=== PATIENT | male | born 1995 | race Caucasian/White ===

== ENCOUNTER 2019-01-29 16:24 | Emergency (ER) | payer MEDICAID ==
[~2019-01-29] VITALS: Ht 180.3 cm; Wt 79.0 kg
[2019-01-29] MEDS ORDERED: ONDANSETRON HCL 4MG/2ML INJ IV STA (19:14)
[2019-01-29] MEDS ORDERED: MORPHINE SULFATE 4 MG/ML CPJ (NOT FOR IM USE) IV STA (19:14)
[2019-01-29] MEDS ORDERED: SODIUM CHLORIDE 0.9% 1,000 ML IV ONE (19:14)
[2019-01-29 21:00] VITALS: BP 121/75
[2019-01-29] MEDS ORDERED: MORPHINE SULFATE 4 MG/ML CPJ (NOT FOR IM USE) IV ONE (21:45)
[2019-01-29] MEDS ORDERED: ETOMIDATE 2MG/ML 10ML VIAL IV ONE (21:45)
== END 2019-01-29 21:50 | disposition home or self-care (01) ==
LOC: ER 16:24
DX: S43.015D Anterior dislocation of left humerus, subsequent encounter (principal); F12.10 Cannabis abuse, uncomplicated; X58.XXXD Exposure to other specified factors, subsequent encounter
CPT/HCPCS: 29105; 73030; 96374; 96375; 99283; J2270; J2405; J7030

== ENCOUNTER 2019-01-30 06:45 | Emergency (ER) | payer MEDICAID ==
[~2019-01-30] VITALS: Ht 180.3 cm; Wt 79.0 kg
[2019-01-30] MEDS ORDERED: MORPHINE SULFATE 4 MG/ML CPJ (NOT FOR IM USE) IV STA (08:32)
[2019-01-30] MEDS ORDERED: ONDANSETRON HCL 4MG/2ML INJ IV STA (08:32)
[2019-01-30] MEDS ORDERED: ONDANSETRON HCL 4MG/2ML INJ IV ONE (10:15)
[2019-01-30] MEDS ORDERED: ETOMIDATE 2MG/ML 10ML VIAL IV ONE (10:15)
[2019-01-30 13:00] VITALS: BP 130/89
== END 2019-01-30 13:27 | disposition home or self-care (01) ==
LOC: ER 07:19
DX: S43.005A Unspecified dislocation of left shoulder joint, initial encounter (principal); X58.XXXA Exposure to other specified factors, initial encounter; Y93.9 Activity, unspecified; Y92.9 Unspecified place or not applicable
CPT/HCPCS: 96374; 96375; 96376; 99283; J2270; J2405; J3490; Z7610

== ENCOUNTER 2019-02-02 05:29 | Emergency (ER) | payer MEDICAID, OTHER ==
[~2019-02-02] VITALS: Ht 180.3 cm; Wt 80.0 kg
[2019-02-02] MEDS ORDERED: MORPHINE SULFATE 4 MG/ML CPJ (NOT FOR IM USE) IV STA (06:48)
[2019-02-02] MEDS ORDERED: LIDOCAINE HCL 1% 20ML VIAL (Pyxis) INJ INFIL ONE (07:00)
[2019-02-02] MEDS ORDERED: ONDANSETRON HCL 4MG/2ML INJ IV ONE (08:45)
[2019-02-02] MEDS ORDERED: PROPOFOL 200MG/20ML VIAL IV ONE (08:45)
[2019-02-02] MEDS ORDERED: KETAMINE HCL 50 MG/ML 10ML IV ONE (08:45)
[2019-02-02 09:38] VITALS: BP 133/75
== END 2019-02-02 10:24 | disposition home or self-care (01) ==
LOC: ER 05:29
DX: S43.085A Other dislocation of left shoulder joint, initial encounter (principal); F12.10 Cannabis abuse, uncomplicated; X58.XXXA Exposure to other specified factors, initial encounter; Y93.89 Activity, other specified; Y92.89 Other specified places as the place of occurrence of the external cause; Y99.8 Other external cause status; Z98.890 Other specified postprocedural states
CPT/HCPCS: 23650; 73030; 96374; 96375; 99285; J2270; J2405; J2704; J3490; Z7610

== ENCOUNTER 2019-06-27 19:12 | Emergency (ER) | payer MEDICAID, OTHER ==
[~2019-06-27] VITALS: Ht 180.3 cm; Wt 76.0 kg
[2019-06-27] MEDS ORDERED: KETOROLAC 15MG/ML VIAL IV ONE (21:45)
[2019-06-27] MEDS ORDERED: LORAZEPAM 2MG/ML CPJ IV ONE (22:15)
[2019-06-27] MEDS ORDERED: MORPHINE SULFATE 4 MG/ML CPJ (NOT FOR IM USE) IV STA (22:15)
[2019-06-27] MEDS ORDERED: ONDANSETRON HCL 4MG/2ML INJ IV STA (22:15)
[2019-06-27 22:56] VITALS: BP 136/93
== END 2019-06-28 00:59 | disposition home or self-care (01) ==
LOC: ER 19:12
DX: S43.085A Other dislocation of left shoulder joint, initial encounter (principal); F12.10 Cannabis abuse, uncomplicated; F17.210 Nicotine dependence, cigarettes, uncomplicated; X58.XXXA Exposure to other specified factors, initial encounter; Y93.39 Activity, other involving climbing, rappelling and jumping off; Y92.89 Other specified places as the place of occurrence of the external cause
CPT/HCPCS: 73020; 73030; 96374; 96375; 99283; J1885; J2060; J2270; J2405

== ENCOUNTER 2019-06-29 09:24 | Emergency (ER) | payer MEDICAID ==
[~2019-06-29] VITALS: Ht 180.3 cm; Wt 75.0 kg
[2019-06-29] MEDS ORDERED: PROPOFOL 200MG/20ML VIAL IV ONE (10:15)
[2019-06-29] MEDS ORDERED: MORPHINE SULFATE 4 MG/ML CPJ (NOT FOR IM USE) IV ONE (10:15)
[2019-06-29 15:32] VITALS: BP 110/72
== END 2019-06-29 15:45 | disposition home or self-care (01) ==
LOC: ER 09:24
DX: S42.292A Other displaced fracture of upper end of left humerus, initial encounter for closed fracture (principal); S43.005A Unspecified dislocation of left shoulder joint, initial encounter; F12.10 Cannabis abuse, uncomplicated; F17.290 Nicotine dependence, other tobacco product, uncomplicated; W18.39XA Other fall on same level, initial encounter; Y93.89 Activity, other specified; Y92.89 Other specified places as the place of occurrence of the external cause; Y99.8 Other external cause status
CPT/HCPCS: 23650; 73030; 96374; 99284; 99406; J2270; J2704; L3670

== ENCOUNTER 2019-07-27 08:46 | Emergency (ER) | payer MEDICAID ==
[~2019-07-27] VITALS: Ht 180.3 cm; Wt 73.0 kg
[2019-07-27] MEDS ORDERED: SODIUM CHLORIDE 0.9% 1,000 ML IV ONE (09:01)
[2019-07-27] MEDS ORDERED: ONDANSETRON HCL 4MG/2ML INJ IV STA (09:01)
[2019-07-27] MEDS ORDERED: MORPHINE SULFATE 4 MG/ML CPJ (NOT FOR IM USE) IV STA (09:01)
[2019-07-27] MEDS ORDERED: ONDANSETRON HCL 4MG/2ML INJ IV ONE (10:00)
[2019-07-27] MEDS ORDERED: ETOMIDATE 2MG/ML 10ML VIAL IV ONE (10:00)
[2019-07-27 12:01] VITALS: BP 108/72
== END 2019-07-27 12:12 | disposition home or self-care (01) ==
LOC: ER 08:46
DX: S43.015A Anterior dislocation of left humerus, initial encounter (principal); F17.200 Nicotine dependence, unspecified, uncomplicated; X58.XXXA Exposure to other specified factors, initial encounter; Y93.89 Activity, other specified; Y92.89 Other specified places as the place of occurrence of the external cause; Y99.8 Other external cause status
CPT/HCPCS: 23650; 73030; 96374; 96375; 96376; 99152; 99285; C1893; J2270; J2405; J3490; J7030

== ENCOUNTER 2019-09-24 22:16 | Emergency (ER) | payer MEDICAID ==
[~2019-09-24] VITALS: Ht 180.3 cm; Wt 79.0 kg
[2019-09-24] MEDS ORDERED: PROPOFOL 200MG/20ML VIAL IV ONE (23:00)
[2019-09-24] MEDS ORDERED: KETAMINE HCL 50 MG/ML 10ML IV ONE (23:00)
[2019-09-25 03:20] VITALS: BP 109/68
== END 2019-09-25 03:21 | disposition home or self-care (01) ==
LOC: ER 22:16
DX: M24.412 Recurrent dislocation, left shoulder (principal); Z98.890 Other specified postprocedural states
CPT/HCPCS: 23650; 73030; 96374; 96375; 99284; J2704; J3490

== ENCOUNTER 2019-10-12 05:23 | Emergency (ER) | payer MEDICAID, OTHER ==
[~2019-10-12] VITALS: Ht 180.3 cm; Wt 77.0 kg
[2019-10-12 06:58] VITALS: BP 123/81
[2019-10-12] MEDS ORDERED: ACETAMINOPHEN WITH CODEINE 300/30MG TABLET PO ONE (07:00)
== END 2019-10-12 08:07 | disposition home or self-care (01) ==
LOC: ER 05:23
DX: M25.512 Pain in left shoulder (principal); F17.200 Nicotine dependence, unspecified, uncomplicated; F12.10 Cannabis abuse, uncomplicated
CPT/HCPCS: 73030; 99283

== ENCOUNTER 2019-10-30 10:55 | Emergency (ER) | payer OTHER ==
[~2019-10-30] VITALS: Ht 170.2 cm; Wt 73.0 kg
[2019-10-30] MEDS ORDERED: SODIUM CHLORIDE 0.9% 1,000 ML IV ONE (11:13)
[2019-10-30] MEDS ORDERED: ONDANSETRON HCL 4MG/2ML INJ IV STA (11:13)
[2019-10-30] MEDS ORDERED: MORPHINE SULFATE 4 MG/ML CPJ (NOT FOR IM USE) IV STA (11:13)
[2019-10-30] MEDS ORDERED: ETOMIDATE 2MG/ML 10ML VIAL IV ONE (12:00)
[2019-10-30 14:00] VITALS: BP 141/79
== END 2019-10-30 14:00 | disposition home or self-care (01) ==
LOC: ER 11:08
DX: S43.005A Unspecified dislocation of left shoulder joint, initial encounter (principal); W01.0XXA Fall on same level from slipping, tripping and stumbling without subsequent striking against object, initial encounter; Y93.9 Activity, unspecified; Y92.9 Unspecified place or not applicable
CPT/HCPCS: 23650; 73030; 96374; 96375; 99152; 99285; J2270; J2405; J3490; J7030; L3670